=== PATIENT | male | born 1975 | race Caucasian/White ===

== ENCOUNTER 2023-04-23 20:51 | Inpatient (IN) | payer OTHER ==
[2023-04-23 21:28] VITALS: BMI 22.0
[2023-04-23] MEDS ORDERED: NALOXONE HCL (KLOXXADO) 8 MG SPRAY NS PRN (22:10)
[2023-04-23] MEDS ORDERED: POLYETHYLENE GLYCOL (HEALTHYLAX) 3350 17 GM PACKET PO PRN (22:10)
[2023-04-23] MEDS ORDERED: NALOXONE HCL 0.4 MG/ML VIAL IM PRN (22:10)
[2023-04-23] MEDS ORDERED: ACETAMINOPHEN 325 MG TABLET (FP) PO PRN (22:10)
[2023-04-23] MEDS ORDERED: LOPERAMIDE HCL 2 MG CAPSULE PO PRN (22:10)
[2023-04-23] MEDS ORDERED: MAG HYDROX/AL HYDROX/SIMETH 30 ML UNIT-DOSE CUP PO PRN (22:10)
[2023-04-23] MEDS ORDERED: IBUPROFEN 600 MG TABLET (FP) PO PRN (22:10)
[2023-04-23] MEDS ORDERED: P-EPHED 60MG/TRIPROLIDI 2.5MG TABLET PO PRN (22:10)
[2023-04-23] MEDS ORDERED: hydrOXYzine PAMOATE 25 MG CAPSULE (FP) PO PRN (22:10)
[2023-04-23] MEDS ORDERED: BENZOCAINE/MENTHOL (CHLORASEPTIC ) LOZENGE MM PRN (22:10)
[2023-04-23] MEDS ORDERED: BISMUTH SUBSALICYLATE 524 MG/30 ML PO PRN (22:10)
[2023-04-23] MEDS ORDERED: BENZONATATE 200 MG CAPSULE PO PRN (22:10)
[2023-04-23] MEDS ORDERED: guaiFENesin 600 MG TABLET.ER (FP) PO PRN (22:10)
[2023-04-23] MEDS ORDERED: ONDANSETRON *ODT* 4 MG TABLET SL PRN (22:10)
[2023-04-23] MEDS ORDERED: DICYCLOMINE HCL 10 MG CAPSULE PO PRN (22:10)
[2023-04-23] MEDS ORDERED: MAGNESIUM HYDROX 2400MG/30ML ORAL SUSPENSION 30 ML CUP PO PRN (22:10)
[2023-04-23] MEDS ORDERED: IBUPROFEN 400 MG TABLET (FP) PO PRN (22:10)
[2023-04-24] MEDS: PRENATAL VITAMINS W/ FOLIC ACID TABLET (FP) PO SCH (09:49)
[2023-04-24] MEDS ORDERED: diazePAM 5 MG TABLET PO PRN (10:40)
[2023-04-24] MEDS ORDERED: cloNIDine HCL 0.1 MG TABLET PO PRN (10:42)
[2023-04-24] MEDS: diazePAM 5 MG TABLET PO SCH ×3 (11:25→22:24)
[2023-04-24 11:38] LABS: HEMATOCRIT 36.6 % (35.4-49); HEMOGLOBIN 12.5 GM/dL (11.7-16.9); MEAN CELL VOLUME 94.1 fl (80-96); MEAN PLT VOLUME 8.2 fl (7.5-11.1); PLATELET COUNT 356 10^3/uL (134-434); RBC 3.89 M/mm3 (4.00-5.60); RDW 14.9 % (11.9-15.9); WHITE BLOOD COUNT 6.6 K/mm3 (4.0-10.0)
[2023-04-24 11:44] LABS: POTASSIUM 4.7 mmol/L (3.5-5.1)
[2023-04-24 11:55] LABS: BILIRUBIN,TOTAL 0.3 mg/dL (0.2-1); TOT PROT 6.2 g/dl (6.4-8.2)
[2023-04-24 11:56] LABS: BLOOD UREA NITROGEN 19.1 mg/dL (7-18)
[2023-04-24 11:57] LABS: CREATININE 0.8 mg/dL (0.55-1.3)
[2023-04-24 12:02] LABS: CALCIUM 8.8 mg/dL (8.5-10.1)
[2023-04-24] MEDS ORDERED: ONDANSETRON 4 MG/2 ML VIAL IM PRN (15:15)
[2023-04-24] MEDS: NICOTINE POLACRILEX 2 MG GUM BUC PRN (17:20)
[2023-04-24] MEDS: QUEtiapine FUMARATE 200 MG TABLET PO SCH (22:22)
[2023-04-24] MEDS: MELATONIN 5 MG TABLETS PO SCH (22:22)
[2023-04-24] MEDS: THIAMINE HCL 100 MG TABLET (FP) PO SCH (22:22)
[2023-04-24] MEDS: METHOCARBAMOL 500 MG TABLET PO PRN (22:22)
[2023-04-25] MEDS: diazePAM 5 MG TABLET PO SCH ×4 (05:14→22:02)
[2023-04-25] MEDS: PRENATAL VITAMINS W/ FOLIC ACID TABLET (FP) PO SCH (10:11)
[2023-04-25] MEDS: NICOTINE POLACRILEX 2 MG GUM BUC PRN ×2 (17:55→22:04)
[2023-04-25] MEDS: MELATONIN 5 MG TABLETS PO SCH (22:03)
[2023-04-25] MEDS: QUEtiapine FUMARATE 200 MG TABLET PO SCH (22:03)
[2023-04-25] MEDS: THIAMINE HCL 100 MG TABLET (FP) PO SCH (22:03)
[2023-04-26] MEDS: diazePAM 5 MG TABLET PO SCH ×2 (05:16→14:55)
[2023-04-26] MEDS: NICOTINE POLACRILEX 2 MG GUM BUC PRN (05:18)
[2023-04-26 10:03] VITALS: TEMP 98.1
[2023-04-26] MEDS: PRENATAL VITAMINS W/ FOLIC ACID TABLET (FP) PO SCH (10:10)
[2023-04-26] MEDS: METHOCARBAMOL 500 MG TABLET PO PRN (10:11)
[2023-04-26 12:54] VITALS: BP 129/71; PULSE 90; RESP 20
[2023-04-27] MEDS ORDERED: diazePAM 5 MG TABLET PO SCH (06:00)
[2023-04-28] MEDS ORDERED: diazePAM 5 MG TABLET PO ONE (06:00)
== END 2023-04-26 16:17 | disposition left against medical advice (07) | DRG 770 ==
LOC: YASAS 20:51 → Y3N 22:34
PROVIDERS: ADMIT Allergy & Immunology; ATTEND Surgery
PROC: HZ2ZZZZ Detoxification Services for Substance Abuse Treatment (ICD-10-PCS; principal; 2023-04-23)
DX: F13.230 Sedative, hypnotic or anxiolytic dependence with withdrawal, uncomplicated (principal); F14.20 Cocaine dependence, uncomplicated; F12.20 Cannabis dependence, uncomplicated; F17.210 Nicotine dependence, cigarettes, uncomplicated; F63.81 Intermittent explosive disorder; F60.3 Borderline personality disorder; F34.0 Cyclothymic disorder
CPT/HCPCS: 36415; 80053; 80178; 85027; 86780; 87635